=== PATIENT | female | born 1990 | race Caucasian/White ===

== ENCOUNTER 2016-09-13 15:15 | Emergency (ER) | payer BC ==
[~2016-09-13] VITALS: Ht 170.2 cm; Wt 74.8 kg
[2016-09-13 15:23] VITALS: BP 116/71
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
[2016-09-13] MEDS ORDERED: IBUPROFEN 800 MG TAB PO ONE (15:45)
--- NOTE | 2016-09-13 15:48 | NUR ---
XRAY AT BEDSIDE
--- NOTE | 2016-09-13 16:01 | NUR ---
SISTER AT BEDSIDE, PT GUSTAVO.
--- NOTE | 2016-09-13 16:08 | NUR ---
NOTED SMALL BRUISE ON LEFT THIRD FINGER, PT ABLE TO MOVE LEFT FINGER
[2016-09-13 16:43] VITALS: BP 105/69
== END 2016-09-13 16:42 | disposition home or self-care (01) ==
LOC: MED 15:15
DX: S66.911A Strain of unspecified muscle, fascia and tendon at wrist and hand level, right hand, initial encounter (principal); S29.011A Strain of muscle and tendon of front wall of thorax, initial encounter; M54.6 Pain in thoracic spine; V89.2XXA Person injured in unspecified motor-vehicle accident, traffic, initial encounter; Y93.89 Activity, other specified; Y92.89 Other specified places as the place of occurrence of the external cause; Y99.8 Other external cause status